=== PATIENT | male | born 1980 | race Two or more races ===

== ENCOUNTER 2023-12-20 21:08 | Inpatient (IN) | payer MEDICAID, OTHER ==
[~2023-12-20] VITALS: Ht 175.3 cm; Wt 140.8 kg
[2023-12-20] MEDS ORDERED: AMOX1TAB16 PO (23:44)
[2023-12-21 00:07] LABS: BASOPHILS % (AUTO) 0.6 % (0.0-2.0); EOSINOPHILS % (AUTO) 0.5 % (1.0-6.0); HEMATOCRIT 44.9 % (41-53); HEMOGLOBIN 15.4 g/dL (13.5-17.5); LYMPHOCYTES # (AUTO) 4.1 K/uL (1.0-4.8); LYMPHOCYTES % (AUTO) 23.6 % (22.0-44.0); MEAN CORPUSCULAR HEMOGLOBIN 30.7 pg (26.0-34.0); MEAN CORPUSCULAR HGB CONC 34.4 G/dL (31.0-37.0); MEAN CORPUSCULAR VOLUME 89 fL (80-100); MONOCYTES # (AUTO) 1.1 K/uL (0.1-1.0); MONOCYTES % (AUTO) 6.1 % (2.0-9.0); NEUTROPHILS % (AUTO) 69.2 % (40.0-70.0); PLATELET COUNT (AUTO) 211 K/uL (150-450); RED BLOOD CELL COUNT(AUTO) 5.03 MIL/uL (4.50-5.90); RED CELL DISTRIBUTION WIDTH 12.9 % (11.5-14.5); WHITE BLOOD COUNT (AUTO) 17.4 K/uL (4.5-11.0)
[2023-12-21 00:19] LABS: ANION GAP 10 mmol/L (8-16); CALCIUM, TOTAL 9.6 mg/dL (8.8-10.5); CARBON DIOXIDE 30 mmol/L (22-29); CHLORIDE 102 mmol/L (98-107); GLOMERULAR FILTR. RATE CALC > 60 mL/min (>60); GLUCOSE,RANDOM 196 mg/dL (70-110); POTASSIUM 4.2 mmol/L (3.5-5.1); SODIUM SERUM 142 mmol/L (136-145); UREA NITROGEN, BLOOD 12 mg/dL (7-18)
[2023-12-21 00:25] LABS: ALANINE AMINOTRANSFERASE 42 U/L (12-78); ALBUMIN 3.9 g/dL (3.4-5.0); ALKALINE PHOSPHATASE 73 U/L (46-116); ASPARTATE AMINOTRANSFERASE 12 U/L (15-37); BILIRUBIN,TOTAL 0.8 mg/dL (0.1-1.0); TOTAL PROTEIN, SERUM 8.2 g/dL (6.4-8.2)
[2023-12-21 00:34] LABS: ALCOHOL, BLOOD (SERUM) < 3 mg/dL (0-10)
[2023-12-21] MEDS ORDERED: LORazepam 2 MG TABLET PO PRN (01:30)
[2023-12-21] MEDS ORDERED: QUEtiapine FUMARATE 100 MG TABLET PO PRN (01:30)
[2023-12-21] MEDS ORDERED: ZOLPIDEM TARTRATE 10 MG TABLET PO PRN (01:30)
[2023-12-21 02:14] LABS: COVID AG,FIA SOURCE NASAL SWAB
[2023-12-21 02:58] LABS: SARS-COV2 (COVID) ANTIGEN,FIA Negative (Negative)
[2023-12-21 04:44] VITALS: BP 143/85; PULSE 79; RESP 18; TEMP 98.3; O2SAT 98
[2023-12-21] MEDS ORDERED: INFLUENZA VIRUS VACCINE QVS 2023-24 (6MO+)/PF 60 MCG/0.5 ML SYRINGE IM. ONE (04:45)
[2023-12-21] MEDS ORDERED: PNEUMOCOCCAL VACCINE POLYVALENT 0.5 ML SYRINGE [PPSV23] IM. ONE (04:45)
[2023-12-21 07:35] LABS: GLUCOMETER DEV NAME(LOC) BV2S.; GLUCOSE,POINT OF CARE 198 MG/DL (70-110)
[2023-12-21] MEDS ORDERED: LOPERAMIDE HCL 2 MG CAPSULE PO PRN (10:00)
[2023-12-21] MEDS ORDERED: PROMETHAZINE HCL 25 MG TABLET PO PRN (10:00)
[2023-12-21] MEDS ORDERED: MAGNESIUM HYDROXIDE SUSPENSION 30 ML UDCUP PO PRN (10:00)
[2023-12-21] MEDS ORDERED: MAG HYDROX/ALUMINUM HYD/SIMETH ES 30 ML SUSPENSION UDCUP PO PRN (10:00)
[2023-12-21] MEDS ORDERED: HydrOXYzine PAMOATE 50 MG CAPSULE PO PRN (10:00)
[2023-12-21] MEDS ORDERED: GuaiFENesin/D-METHORPHAN [SUGAR-FREE] 200-20MG/10 ML SYRUP UDCUP PO PRN (10:00)
[2023-12-21] MEDS ORDERED: ACETAMINOPHEN 325 MG TABLET PO PRN ×2 (10:00→13:30)
[2023-12-21] MEDS ORDERED: TUBERCULIN, PURIFIED PROTEIN DERIVATIVE 5 TU/0.1 ML SYRINGE ID ONE (10:00)
[2023-12-21] MEDS: MELATONIN 5 MG TABLET PO SCH (21:00)
[2023-12-21 23:13] VITALS: BP 144/96; PULSE 79; RESP 18; TEMP 96.6; O2SAT 97
[2023-12-21] MEDS: AMOX TR/POT CLAV 875 MG/125 MG TABLET PO SCH (23:27)
[2023-12-21] MEDS: GABAPENTIN 300 MG CAPSULE PO SCH (23:28)
[2023-12-22 01:58] VITALS: PULSE 81; RESP 18; O2SAT 96
[2023-12-22] MEDS: IBUPROFEN 600 MG TABLET PO PRN (06:04)
[2023-12-22 07:05] LABS: HEMOGLOBIN A1C 8.8 % (3.8-5.6)
[2023-12-22 07:16] LABS: CHOL/HDL RATIO 4.4 (4.2-7.3); FREE T4 (FREE THYROXINE) 0.84 ng/dL (0.76-1.46); THYROID STIMULATING HORMONE 1.45 uIU/mL (0.36-3.74)
[2023-12-22] MEDS: OMEGA-3/DHA/EPA/FISH OIL 1,000 MG CAPSULE PO SCH (08:46)
[2023-12-22] MEDS: FOLIC ACID 1 MG TABLET PO SCH (08:50)
[2023-12-22] MEDS: DULoxetine HCL 20 MG CAPSULE PO SCH (08:50)
[2023-12-22] MEDS: MULTIVITAMINS WITH MINERALS, THERAPEUTIC TABLET PO SCH (08:50)
[2023-12-22] MEDS: THIAMINE 100 MG TABLET PO SCH (09:00)
[2023-12-22] MEDS ORDERED: FLUoxetine HCL 20 MG CAPSULE PO SCH (09:00)
[2023-12-22 10:40] VITALS: BP 138/78; PULSE 62; RESP 18; TEMP 97.9; O2SAT 99
[2023-12-22] MEDS ORDERED: MELA5TAB40 PO (14:50)
[2023-12-22] MEDS ORDERED: GABA-1181 PO (14:50)
[2023-12-22] MEDS ORDERED: OMEG-135 PO (14:50)
[2023-12-22] MEDS ORDERED: DULO20CA71 PO (14:50)
[2023-12-22 20:54] VITALS: BP 137/82; PULSE 82; RESP 18; TEMP 97.8; O2SAT 97
[2023-12-23 08:53] VITALS: BP 149/88; PULSE 63; RESP 18; TEMP 97.5; O2SAT 99
== END 2023-12-23 17:43 | disposition home or self-care (01) | DRG 751 ==
LOC: EMS 21:08 → B2S 12-21 02:27 → 3EI 12-21 21:40
PROVIDERS: ADMIT Psychiatry & Neurology Psychiatry; ATTEND Psychiatry & Neurology Psychiatry
PROC: GZHZZZZ Group Psychotherapy (ICD-10-PCS; principal; 2023-12-21)
PROC: GZ51ZZZ Individual Psychotherapy, Behavioral (ICD-10-PCS; 2023-12-21)
DX: F32.2 Major depressive disorder, single episode, severe without psychotic features (principal); R45.851 Suicidal ideations; D72.829 Elevated white blood cell count, unspecified; E66.01 Morbid (severe) obesity due to excess calories; E11.65 Type 2 diabetes mellitus with hyperglycemia; Z20.822 Contact with and (suspected) exposure to COVID-19; G89.29 Other chronic pain; M54.9 Dorsalgia, unspecified; Z88.1 Allergy status to other antibiotic agents; Z68.42 Body mass index [BMI] 45.0-49.9, adult
CPT/HCPCS: 80053; 80061; 82962; 83036; 84439; 84443; 85025; 86592; 99285; G0480; Q9967

== ENCOUNTER 2023-12-21 07:57 | Emergency (ER) | payer MEDICAID, OTHER ==
[~2023-12-21] VITALS: Ht 175.3 cm; Wt 136.4 kg
[~2023-12-21 07:57] MED LIST: AMOX1TAB16 PO
[2023-12-21 08:06] VITALS: TEMP 98.5
[2023-12-21] MEDS ORDERED: ACETAMINOPHEN 325 MG TABLET PO PRN (11:30)
[2023-12-21] MEDS ORDERED: IBUPROFEN 600 MG TABLET PO PRN (11:30)
[2023-12-21] MEDS: AMOX TR/POT CLAV 875 MG/125 MG TABLET PO ONE (12:03)
[2023-12-21 21:01] VITALS: PULSE 64; RESP 18; O2SAT 96
[2023-12-21 21:40] VITALS: BP 129/75; PULSE 94; RESP 18
[2023-12-22 13:27] LABS: BASOPHILS % (AUTO) 0.9 % (0.0-2.0); HEMATOCRIT 42.2 % (41-53); HEMOGLOBIN 14.6 g/dL (13.5-17.5); LYMPHOCYTES # (AUTO) 3.6 K/uL (1.0-4.8); MEAN CORPUSCULAR HEMOGLOBIN 30.8 pg (26.0-34.0); MEAN CORPUSCULAR HGB CONC 34.5 G/dL (31.0-37.0); MEAN CORPUSCULAR VOLUME 89 fL (80-100); MONOCYTES # (AUTO) 0.6 K/uL (0.1-1.0); MONOCYTES % (AUTO) 6.2 % (2.0-9.0); NEUTROPHILS # (AUTO) 5.9 K/uL (1.8-7.7); NEUTROPHILS % (AUTO) 56.9 % (40.0-70.0); PLATELET COUNT (AUTO) 205 K/uL (150-450); RED BLOOD CELL COUNT(AUTO) 4.73 MIL/uL (4.50-5.90); RED CELL DISTRIBUTION WIDTH 12.8 % (11.5-14.5); WHITE BLOOD COUNT (AUTO) 10.4 K/uL (4.5-11.0)
[2023-12-22 13:45] LABS: ALANINE AMINOTRANSFERASE 54 U/L (12-78); ALBUMIN 3.6 g/dL (3.4-5.0); ALKALINE PHOSPHATASE 69 U/L (46-116); ANION GAP 11 mmol/L (8-16); ASPARTATE AMINOTRANSFERASE 29 U/L (15-37); BILIRUBIN,TOTAL 1.2 mg/dL (0.1-1.0); CARBON DIOXIDE 25 mmol/L (22-29); CHLORIDE 98 mmol/L (98-107); CHOL/HDL RATIO 4.6 (4.2-7.3); CHOLESTEROL 208 mg/dL (131-200); CREATININE 0.95 mg/dL (0.60-1.30); GLOMERULAR FILTR. RATE CALC > 60 mL/min (>60); GLUCOSE,RANDOM 273 mg/dL (70-110); HDL CHOLESTEROL 45 mg/dL (40-60); POTASSIUM 3.6 mmol/L (3.5-5.1); SODIUM SERUM 134 mmol/L (136-145); THYROID STIMULATING HORMONE 0.79 uIU/mL (0.36-3.74); TOTAL PROTEIN, SERUM 7.6 g/dL (6.4-8.2); TRIGLYCERIDES 477 mg/dL (15-150); UREA NITROGEN, BLOOD 13 mg/dL (7-18)
[2023-12-22 14:04] LABS: HEMOGLOBIN A1C 8.8 % (3.8-5.6)
[2023-12-22] MEDS ORDERED: MELA5TAB40 PO (14:50)
[2023-12-22] MEDS ORDERED: GABA-1181 PO (14:50)
[2023-12-22] MEDS ORDERED: OMEG-135 PO (14:50)
[2023-12-22] MEDS ORDERED: DULO20CA71 PO (14:50)
== END 2023-12-21 21:29 | disposition home or self-care (01) ==
LOC: EMS 07:57
DX: F32.9 Major depressive disorder, single episode, unspecified (principal); R45.851 Suicidal ideations; E11.9 Type 2 diabetes mellitus without complications
CPT/HCPCS: 80053; 80061; 83036; 84443; 85025; 94660; 99283